=== PATIENT | male | born 1945 | race Caucasian/White ===

== ENCOUNTER 2016-05-18 11:09 | Inpatient (IN) | payer OTHER, MEDICARE ==
[~2016-05-18] VITALS: Ht 177.8 cm; Wt 74.7 kg
[~2016-05-18 11:09] MED LIST: CENTRUM1 TA1 PO; CLEOCIN HCL300 MG PO; COUMADIN 22.5 MG/TAB PO; COUMADIN 5MG5 MG/TAB PO; FLEET ENEM1 BOT/133 RC; IPRATROPIUM BROM3 M1 IH; LINZESS145CAP PO; MASON NATURAL600 MG PO; NEURONTIN100 MG/CAP PO; NUPLAZID17 MG PO; OMEGA-3 FISH1000 MG PO; PROBIOTIC FORMU1 CAP PO; REQUIP 0.5MG0.5 MG PO; STALEVO 100 251 TAB PO; TAMIFLU 75MG75 MG PO; TRIAMCINOLONE A15 G3 TP; VITAMIN D 50,1.25 MG PO
[2016-05-19 15:53] VITALS: BP 117/73; PULSE 77; TEMP 98.4
[2016-05-19 16:03] VITALS: BP 117/73; PULSE 77; TEMP 98.4
[2016-05-19 18:07] VITALS: BP 117/73; PULSE 77; TEMP 98.4
[2016-05-20 03:57] LABS: INR 2.2 (0.8-3.0); PROTHROMBIN TIME 25.2 SECONDS (9.7-12.8)
[2016-05-20 04:02] LABS: CALCIUM 8.9 mg/dL (8.4-10.2); CREATININE, serum 0.99 mg/dL (0.66-1.25); POTASSIUM 3.7 mmol/L (3.4-5.0)
[2016-05-20 06:04] VITALS: BP 139/68; PULSE 73; TEMP 98.4
[2016-05-20 16:27] VITALS: BP 123/69; PULSE 86; TEMP 97.9
[2016-05-21 03:53] VITALS: BP 123/78; PULSE 83; TEMP 97
[2016-05-21 13:06] LABS: PROTHROMBIN TIME 22.1 SECONDS (9.7-12.8)
[2016-05-21 17:58] VITALS: BP 118/68; PULSE 82; TEMP 98.8
[2016-05-22 05:48] LABS: ALLEN TEST NO; ARTERIAL BLD GAS O2 SATURATION 96.2 % (92-100); ARTERIAL BLD GAS TCO2 CT 24.2; ARTERIAL BLOOD GAS BASE EXCESS -0.2 (-2-2); ARTERIAL BLOOD GAS PO2 81.2 mmHg (80-100); ARTERIAL BLOOD GAS pH 7.45 (7.35-7.45); ATS? YES
[2016-05-22 06:05] VITALS: BP 152/57; PULSE 105; TEMP 98.7
[2016-05-22 10:17] LABS: INR 2.6 (0.8-3.0); PROTHROMBIN TIME 29.8 SECONDS (9.7-12.8)
[2016-05-23 04:45] VITALS: BP 193/82; PULSE 85; TEMP 98.6
[2016-05-23 05:09] VITALS: BP 123/35
[2016-05-23 10:11] LABS: INR 2.7 (0.8-3.0); PROTHROMBIN TIME 30.7 SECONDS (9.7-12.8)
[2016-05-23 18:16] VITALS: BP 156/74; PULSE 96; TEMP 97.5
[2016-05-24 04:11] VITALS: BP 152/86; PULSE 89; TEMP 98.5
[2016-05-24 06:41] LABS: BASO # 0.1 (0.0-0.2); BASO % 0.6 % (0.0-2.0); EOS # 0.6 (0.0-0.7); EOS % 5.5 % (0-4.0); GRAN # 7.1 (1.4-6.5); GRAN % 70.7 % (42.2-75.2); HEMATOCRIT 42.1 % (42.0-52.0); HEMOGLOBIN 13.9 g/dl (13.5-18.0); LYMPH # 1.2 (1.2-3.4); MEAN CELL VOLUME 95 fl (80.0-100.0); MEAN CORPUSCULAR HEMOGLOBIN 31 pg (27.0-31.0); MEAN CORPUSCULAR HGB CONC 33 g/dl (33.0-37.0); MEAN PLATELET VOLUME 9.2 fl (7.4-10.4); MONO % 10.1 % (1.7-9.3); PLATELET COUNT 405 K/mm3 (130-400); RED BLOOD COUNT 4.43 M/mm3 (4.20-5.60); REDCELL DISTRIBUTION WIDTH-CV 13.1 % (11.5-14.5)
[2016-05-24 06:46] LABS: PROTHROMBIN TIME 36.2 SECONDS (9.7-12.8)
[2016-05-24 06:54] LABS: INR 3.2 (0.8-3.0)
[2016-05-24 06:59] LABS: CALCIUM 9.7 mg/dL (8.4-10.2); CREATININE, serum 1.1 mg/dL (0.66-1.25); POTASSIUM 4.1 mmol/L (3.4-5.0)
[2016-05-24 15:56] VITALS: BP 101/65; PULSE 87; TEMP 99.2
[2016-05-25 06:13] VITALS: BP 166/73; PULSE 100; TEMP 98.1
[2016-05-25 07:09] LABS: PROTHROMBIN TIME 36.7 SECONDS (9.7-12.8)
[2016-05-25 07:14] LABS: INR 3.2 (0.8-3.0)
[2016-05-25 16:06] VITALS: BP 115/65; PULSE 81; TEMP 97.4
[2016-05-26 05:25] VITALS: BP 112/60; PULSE 76; TEMP 98.2
[2016-05-26 08:02] LABS: INR 1.9 (0.8-3.0); PROTHROMBIN TIME 21.6 SECONDS (9.7-12.8)
[2016-05-26 16:23] VITALS: BP 119/59; PULSE 92; TEMP 97.2
[2016-05-27 07:02] VITALS: BP 119/62; PULSE 68; TEMP 97.6
[2016-05-27 07:56] LABS: INR 1.7 (0.8-3.0); PROTHROMBIN TIME 19.2 SECONDS (9.7-12.8)
[2016-05-27 17:36] VITALS: BP 122/72; PULSE 88; TEMP 98.9
[2016-05-28 05:10] VITALS: BP 119/61; PULSE 71; TEMP 98.6
[2016-05-28 08:29] LABS: INR 1.7 (0.8-3.0); PROTHROMBIN TIME 19.1 SECONDS (9.7-12.8)
[2016-05-28] MEDS ORDERED: TYLENOL 325MG325 MG PO (10:08)
[2016-05-28] MEDS ORDERED: COUMADIN 2MG2 MG/TAB PO (10:08)
[2016-05-28] MEDS ORDERED: COMTAN 200MG T200 MG PO (10:13)
[2016-05-28 19:17] VITALS: BP 117/69; PULSE 80; TEMP 98.2
[2016-05-29 05:25] VITALS: BP 141/63; PULSE 75; TEMP 98.2
[2016-05-29 07:36] LABS: INR 1.7 (0.8-3.0)
[2016-05-29 16:41] VITALS: BP 118/64; PULSE 92; TEMP 99.2
[2016-05-30 06:49] VITALS: BP 103/54; PULSE 76; TEMP 98.6
[2016-05-30 07:53] LABS: PROTHROMBIN TIME 22.4 SECONDS (9.7-12.8)
[2016-05-30 19:06] VITALS: BP 111/59; PULSE 84; TEMP 98.6
[2016-05-31 04:47] VITALS: BP 115/62; PULSE 66; TEMP 98.9
[2016-05-31 07:16] LABS: INR 2.1 (0.8-3.0)
[2016-05-31 16:43] VITALS: BP 118/58; PULSE 81; TEMP 98.2
[2016-06-01 04:28] VITALS: BP 119/91; PULSE 96; TEMP 97
[2016-06-01 09:40] LABS: INR 2.3 (0.8-3.0); PROTHROMBIN TIME 26.3 SECONDS (9.7-12.8)
[2016-06-01 16:42] VITALS: BP 116/74; PULSE 87; TEMP 98.9
[2016-06-02 04:40] VITALS: BP 115/30; PULSE 87
[2016-06-02 08:28] LABS: INR 2.3 (0.8-3.0); PROTHROMBIN TIME 26.2 SECONDS (9.7-12.8)
== END 2016-06-02 12:05 | disposition home or self-care (01) | DRG 947 ==
PROVIDERS: Internal Medicine; Nurse Practitioner Family
DX: R53.81 Other malaise (principal); J11.00 Influenza due to unidentified influenza virus with unspecified type of pneumonia; J69.0 Pneumonitis due to inhalation of food and vomit; G20 Parkinson's disease; Z86.711 Personal history of pulmonary embolism; Z79.01 Long term (current) use of anticoagulants
CPT/HCPCS: 99222-AI; 99232-AI; 99239